=== PATIENT | female | born 1955 | race Caucasian/White ===

== ENCOUNTER → 2019-05-05 | Outpatient (CLI) | payer OTHER ==
--- NOTE | 2019-05-07 17:06 | PATH ---
[facility] [place] [address] PATHOLOGY RPT PROCEDURE Name: KATHIE DAVIS Room #: REG CANDY Rosenthal.Kane.#: [id number] Admission: 05/05/19 Date of : 53 Discharge: Report #: [id number] Path Case #: [id number] [facility] Accession Number: [id number] . 01 Material submitted: . PART A: breast - LEFT BREAST 10:00 3CM. Modifiers: left, 10:00 PART B: axilla - LEFT AXILLA. Modifiers: left PART C: breast - LEFT BREAST 1:00 2CM. Modifiers: left, 1:00 . 01 Clinical history: . masses . 02 Diagnosis: A. 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 . B. Lymph node, left axilla, biopsy: - INVASIVE POORLY DIFFERENTIATED DUCTAL ADENOCARCINOMA, CHANTALE GRADE III IDENTIFIED IN MULTIPLE CORES IN FRAGMENTS. - Measuring 4 mm in a single core in contiguous length. - No lymph node tissue present in the background. . C. 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 - Lymph vascular space invasion present. (IUV:pit; 05/07/2019) QTP 05/07/2019 1219 Local . 02 Comment: Specimen type: Needle core biopsy x 3 Tumor site: 10:00 3 cm from nipple and 1:00 2 cm from nipple Tumor quantitation: 1.4 cm and 0.8 cm Histologic type: Invasive mammary carcinoma Histologic grade: Chantale grade III Tubules, nuclei and mitoses: 3, 3, and 2 respectively LVSI: Present in the 1:00 2 cm from nipple biopsy tissue Microcalcifications: Not identified Markers: ER, MS, HER-2/DIMITRI, and Ki-67 Block: A1 . In addition, a left axilla biopsy was performed. Per EMR this represents a lymph node in the left axilla. For this reason, HER-2/DIMITRI is ordered on block B1 as well. [address] [address] PATHOLOGY RPT PROCEDURE Name: KATHIE DAVIS Room #: REG CANDY Meng#: [id number] Admission: 05/05/19 Date of : 53 Discharge: Report #: [id number] Path Case #: [id number] . The results of the breast prognostic markers will be reported in an addendum to follow. . Co-review: Recruitment Director slides were co-reviewed by Dr. Radha Ignacio who concurs with my diagnosis. . Findings of this case are telephoned to our breast center tech and then discussed with at 12:209 pm on 05/07/2019. (IUV:pit; 05/07/2019) . 02 Electronically signed: . Jaz Rao MD, Pathologist NPI- [id number] . 01 Gross description: . A. The specimen is received in formalin, labeled "Patch, Kathie, Lt 10:00 3 cm" and consists of 3 needle cores of yellow-pink fibroadipose tissue measuring between 1.5 cm and 1.8 cm in length and 0.2 cm each in diameter which are entirely submitted in A1-A3. The specimen was collected at 2:30 PM on 05/05/2019 and placed in formalin at 2:32 PM. The cold ischemic time is 2 minutes and the total formalin fixation is greater than 6 hours less than 72 hours. . B. The specimen is received in formalin, labeled "Patch, Kathie, Lt axillary" and consists of multiple pink-pitts needle core fragments measuring 1.4 x 0.5 x 0.3 cm in aggregate which are entirely submitted in B1. The specimen was collected at 3:10 PM on 05/05/2019 placed in formalin at 3:10 PM. The cold ischemic time is less than 1 minute and the total formalin fixation time is greater than 6 hours but less than 72 hours. . C. The specimen is received in formalin, labeled "Patch, Kathie, Lt 1:00 2 cm" and consists of 4 needle cores of yellow-pink fibroadipose tissue measuring between 0.8 cm and 1.1 cm in length and 0.2 cm each in diameter which are entirely submitted in C1-C3. The specimen was collected at 3:30 PM on 05/05/2019 and placed in formalin at 3:30 PM. The cold ischemic time is 1 minute and the total formalin fixation time is greater than 6 hours but less than 72 hours. (SDY; 05/06/2019) SYU/SYU 05/06/2019 1406 Local . 02 Pathologist provided ICD-10: C50.912, C76.1 . 02 CPT . 194547, 423573, [id number] Specimen Comment: A courtesy copy of this report has been sent to [phone] [facility] [address] [place] [address] PATHOLOGY RPT PROCEDURE Name: KATHIE DAVIS Room #: REG CANDY Barragan.#: [id number] Admission: 05/05/19 Date of : 53 Discharge: Report #: [id number] Path Case #: [id number] Specimen Comment: Report sent to Performed at: 01 [facility] [address], [place], [place] [id number] MD Rafita Toledo MD Phone: [phone] Performed at: [address] [facility] [address] [id number] MD Jaz Rao MD Phone: [phone]
== END | disposition home or self-care (01) ==
LOC: ULTRA 01:22
DX: N63.20 Unspecified lump in the left breast, unspecified quadrant (principal); C50.912 Malignant neoplasm of unspecified site of left female breast; C96.9 Malignant neoplasm of lymphoid, hematopoietic and related tissue, unspecified